=== PATIENT | female | born 1995 | race Caucasian/White ===

== ENCOUNTER 2025-01-28 08:47 | Emergency (ER) | payer BC, SELFPAY ==
[2025-01-28 09:05] VITALS: BP 135/92
[2025-01-28 10:38] LABS: Hematocrit 40.3 % (37.0-47.0); Hemoglobin 13.3 g/dL (12.0-16.0); Mean Corp Hgb Conc. 33.0 g/dL (33.0-37.0); Mean Corpuscular Volume 89.4 fL (81.0-99.0); Nucleated Red Blood Cells % 0 %; Platelet Count 223 10^3/uL (130-400); Red Cell Dist. Width 13.0 % (11.5-14.5)
[2025-01-28 10:51] LABS: Urine Character Clear (Clear)
[2025-01-28 11:14] LABS: HCG, Serum Qualitative Screen Negative
--- NOTE | 2025-01-28 11:15 | ED.GENMED ---
History of Present Illness
General
Chief Complaint: Flank Pain
Source: patient
Exam Limitations: none
Time Seen by Provider: 01/28/25 10:05
Nursing documentation reviewed up to this point in time: agreed with
History of Present Illness
History of Present Illness:
The patient is a 29-year-old female who presented with acute onset of left-sided flank pain around 7 AM today while on her way to work. The pain was sudden and described as severe, reaching a 9/10. It was persistent, and she found no relief with
positional changes or bowel movement. The patient experienced associated symptoms of nausea and vomiting but reported no fever or chills. 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
possible kidney stone. The severe pain lasted approximately two and a half hours and has subsided to 1/10 at this time.
Past History
Past History
ED Past Medical History: Asthma
ED Past Surgical History: None
Social History
Tobacco: Non-smoker
Alcohol: Occasional
Personal:
Living: with family
Employment: Employed
Review of Systems
Review of Systems
Allergies reviewed?: Yes
All Other Systems: ROS reviewed and negative except as documented in HPI and ROS
Phy Exam
Physical Exam
Physical Exam:
GENERAL: No acute distress. A&Ox3.
CONSTITUTIONAL: Afebrile.
EYES: clear, conjunctivae normal
ENMT: moist mucus membranes, Pharynx nl
RESPIRATORY: Regular respirations, nonlabored, lungs clear.
CARDIOVASCULAR: Regular rate and rhythm, no murmurs, no rubs.
GI: Soft, nontender, normal BS. Flanks nontender.
MUSCULOSKELETAL: Moves with ease. Well perfused.
SKIN: Warm, dry, pink
PSYCH: Normal mood and affect. Well kept, interactive and appropriate
NEUROLOGIC: Awake, alert and oriented. No focal neurological deficits
Course
Orders/Labs/Results
Orders:
Orders
01/28/25 10:17
CT Abd/pel Without Iv Or Oral Urgent
Comment:
Reason For Exam: L flank pain, hematuria
01/28/25 10:19
Test Result ONCE
01/28/25 10:20
Complete Blood Count/With Diff Urgent
Comprehensive Metabolic Panel Urgent
HCG, Serum Qualitative Screen Urgent
Urinalysis Reflex To Culture Urgent
Date Specimen was Collected: 01/28/25
Time Specimen was Collected: 10:06
Urine Microscopic Reflex Cult Urgent
Abnormal Lab Results
01/28/25
10:20
MPV 11.0 H fL
(7.4-10.4)
Absolute Lymphs (auto) 0.6 L 10^3/uL
(1.2-3.4)
Neutrophils % 82.1 H %
(42.2-75.2)
Lymphocytes % 8.9 L %
(20.5-51.1)
Chloride 108 H mmol/L
(98-107)
Glucose 107 H mg/dl
(70-99)
Ur Occult Blood Reflex 4+ A
(Negative)
Urine RBC 11-15 A /HPF
(0-2)
Urine Albumin (Reflex) 2+ A
(Neg - Trace)
01/28/25 10:20
01/28/25 10:20
Vital Signs
Initial and Last Documented VS:
Initial Vital Signs
Temp Pulse Resp BP Pulse Ox
98.0 F 94 16 135/92 98
01/28/25 09:05 01/28/25 09:05 01/28/25 09:05 01/28/25 09:05 01/28/25 09:05
Last Documented Vital Signs
Temp Pulse Resp BP Pulse Ox
98.0 F 86 18 123/72 98
01/28/25 11:53 01/28/25 11:53 01/28/25 11:53 01/28/25 11:53 01/28/25 11:53
MDM/Problems Addressed
Differential Diagnosis Includes:
Kidney stone, UTI, pyelonephritis, diverticulitis
MDM/Problems Addressed:
The patient is a 29-year-old female who presented with acute onset of left-sided flank pain around 7 AM today while on her way to work. The pain was sudden and described as severe, reaching a 9/10. It was persistent, and she found no relief with
positional changes or bowel movement. The patient experienced associated symptoms of nausea and vomiting but reported no fever or chills. 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
possible kidney stone. The severe pain lasted approximately two and a half hours and has subsided to 1/10 at this time.
CBC with no clinically significant abnormality
CMP normal
hCG negative
UA: RBCs, no sign of infection.
12:10 PM:
CT abdomen pelvis radiology report texted: no stones or hydro. She has stranding near left prox ureter, may be recently passed stone or ascending UTI.
Patient continues to be pain-free. States she saw a tiny black thing in toilet when last voided. Hx and w/u Most consistent with passed stone.
*Pulse Oximetry
SaO2: 98
Oxygen Mode of Delivery: Room air
Patient hypoxic: not evaluated
*Critical Care Note
Total Time (30-74mins, 75-104mins- exclusive of procedures): Not Applicable
ED Attending Note
-
Portions of this chart may have been created with voice recognition software.� Occasional wrong word or��sound alike� substitutions may have occurred due to the inherent limitations of voice recognition software.
Discharge Plan
Departure
Patient Disposition: Home (Routine Discharge)
Date of Disposition: 01/28/25
Time of Disposition: 12:15
Patient with high blood pressure during this ER visit?: No
Condition: Good
Discharge Problem:
Kidney stone on left side
Instructions: Kidney Stones (DC)
Referrals:
Iman Otero, [Family Provider, Internal Medicine] - As needed
Activity Restrictions/Additional Instructions:
As we discussed, your CAT scan shows indications of a probable recently passed stone.
Your urine shows no sign of infection
Your lab work is normal
You may have some residual mild soreness for a day or 2.
Interventions
Interventions:
*Risk Screen - Suicide Last Done: 01/28/25 09:05
*General Assessment Last Done: 01/28/25 09:05
*Neglect/Abuse Screening Last Done: 01/28/25 09:05
*ED- Fall Risk Assessment Last Done: 01/28/25 11:55
*ED COVID-19 Vaccine History Last Done: 01/28/25 11:55
*ED Influenza Vaccine History Last Done: 01/28/25 11:55
*Nursing Disposition Last Done: 01/28/25 12:23
LW-Jlzqsn-Fyjblbmnju Assessment Last Done: 01/28/25 10:31
ED-Female Genitourinary Assessment Last Done: 01/28/25 10:31
Discharge Date and Time
Discharge Date/Time: 01/28/25 12:33
Print Language: VENEZUELAN
[2025-01-28 11:20] LABS: ALT (SGPT) 15 U/L (0-35); AST (SGOT) 18 U/L (14-36); Albumin 4.6 g/dl (3.5-5.0); Alkaline Phosphatase 65 U/L (38-126); Blood Urea Nitrogen 8 mg/dl (7-17); Calcium 9.4 mg/dl (8.4-10.2); Carbon Dioxide 24 mmol/L (22-30); Chloride 108 mmol/L (98-107); Glucose 107 mg/dl (70-99); Potassium 3.8 mmol/L (3.5-5.1); Sodium 141 mmol/L (135-145); Total Protein 7.8 g/dl (6.3-8.2); eGFR > 60.00
[2025-01-28 11:53] VITALS: BP 123/72
== END 2025-01-28 12:33 | disposition home or self-care (01) ==
LOC: EMR 08:47
PROVIDERS: Registered Nurse; EMERGENCY PHYSICIAN Emergency Medicine; FAMILY PHYSICIAN Internal Medicine
DX: N20.0 Calculus of kidney (principal); J45.909 Unspecified asthma, uncomplicated
CPT/HCPCS: 99284; 74176; 80053; 81003; 81015; 84703; 85025